=== PATIENT | male | born 1990 | race Native Hawaiian/Other Pacific Islander ===

== ENCOUNTER 2019-11-05 20:36 | Emergency (ER) | payer BC, OTHER ==
[~2019-11-05] VITALS: Ht 175.3 cm; Wt 81.6 kg
[2019-11-05 21:16] LABS: PLATELET COUNT 250 K/uL (142-355)
[2019-11-05 21:36] LABS: POTASSIUM 3.1 mmol/L (3.6-5.2); SODIUM 141 mmol/L (136-145)
[2019-11-05 22:41] VITALS: BP 114/74; TEMP 98
== END 2019-11-05 22:40 | disposition short-term general hospital (02) ==
LOC: ED 20:36
PROVIDERS: General Practice
PROC: 0HDFXZZ Extraction of Right Hand Skin, External Approach (ICD-10-PCS; principal; 2019-11-05)
PROC: 0HDDXZZ Extraction of Right Lower Arm Skin, External Approach (ICD-10-PCS; 2019-11-05)
PROC: 2W2EX4Z Dressing of Right Hand using Bandage (ICD-10-PCS; 2019-11-05)
PROC: 2W2CX4Z Dressing of Right Lower Arm using Bandage (ICD-10-PCS; 2019-11-05)
DX: T23.351A Burn of third degree of right palm, initial encounter (principal); T23.311A Burn of third degree of right thumb (nail), initial encounter; T23.231A Burn of second degree of multiple right fingers (nail), not including thumb, initial encounter; T22.211A Burn of second degree of right forearm, initial encounter; T31.0 Burns involving less than 10% of body surface; X17.XXXA Contact with hot engines, machinery and tools, initial encounter; W40.1XXA Explosion of explosive gases, initial encounter; Y92.89 Other specified places as the place of occurrence of the external cause
CPT/HCPCS: 36415; 80053; 82550; 82553; 83605; 83735; 84484; 85027; 96360; 96375; 99285; J1170; J2270; J2405; J7040